=== PATIENT | female | born 1950 | race Caucasian/White ===

== ENCOUNTER 2019-12-02 06:49 | Day surgery (SDC) | payer MEDICARE, BC ==
[~2019-12-02] VITALS: Ht 157.5 cm; Wt 78.0 kg
[~2019-12-02 06:49] MED LIST: ALBU8.5H8 INH; ASPI-515 PO; BUPIVACAINE/PF 0.5% ONE; EPINEPHRINE 1 MG/ML, 1ML ONE; ESTR1GEL TP; LEVO25TA4 PO; PROG100C10 PO; TUMERIC PO; VALA10007 PO; [UNRECOGNIZED DRUG - OTHER] PO; [UNRECOGNIZED DRUG - OTHER] PO
[2019-12-02] MEDS ORDERED: LIDOCAINE 1%, 20ML ONE (07:01)
[2019-12-02 07:02] VITALS: BP 154/80
[2019-12-02] MEDS ORDERED: LACTATED RINGERS 1,000 ML IV SCH (07:10)
[2019-12-02] MEDS ORDERED: CHLORHEXIDINE 15 ML UDC MM STA (07:10)
[2019-12-02] MEDS ORDERED: MIDAZOLAM 1 MG/ML, 2ML ONE (07:20)
[2019-12-02] MEDS ORDERED: FENTANYL PF 250 MCG/5ML ONE (07:20)
[2019-12-02] MEDS ORDERED: SUCCINYLCHOLINE 20 MG/ML, 10ML ONE (07:40)
[2019-12-02] MEDS ORDERED: ROCURONIUM 10MG/ML,5ML ONE (07:40)
[2019-12-02] MEDS ORDERED: DEXAMETHASONE 4 MG/ML, 1ML ONE (07:40)
[2019-12-02] MEDS ORDERED: ONDANSETRON 2MG/ML, 2ML ONE (07:40)
[2019-12-02] MEDS ORDERED: CEFAZOLIN 1,000 MG ONE (07:40)
[2019-12-02] MEDS ORDERED: OXYcodone 5 MG/5 ML ORAL.SOL UDC PO PRN (08:30)
[2019-12-02] MEDS ORDERED: PROMETHAZINE 25 MG/ML, 1ML IV PRN (08:30)
[2019-12-02] MEDS ORDERED: KETOROLAC 30 MG/1 ML IV PRN (08:30)
[2019-12-02] MEDS ORDERED: METOCLOPRAMIDE 5 MG/ML, 2ML IV PRN (08:30)
[2019-12-02] MEDS ORDERED: FENTANYL PF 100 MCG/2ML IV PRN (08:30)
[2019-12-02] MEDS ORDERED: MEPERIDINE/PF 25MG/0.5ML IVPush PRN (08:30)
[2019-12-02] MEDS ORDERED: ONDANSETRON 2MG/ML, 2ML IVPush PRN (08:30)
[2019-12-02] MEDS ORDERED: DIAZEPAM 5 MG/ML, 2ML IV PRN ×2 (08:30)
[2019-12-02] MEDS ORDERED: LABETALOL 5MG/ML, 20ML IV PRN (08:30)
[2019-12-02] MEDS ORDERED: hydrALAzine 20 MG/ML, 1ML IV PRN (08:30)
[2019-12-02] MEDS ORDERED: HYDROmorphone 1 MG/ML, 1ML INJ IV PRN (08:30)
[2019-12-02] MEDS ORDERED: ALBUTEROL SULFATE 2.5 MG/3 ML NPPB PRN (08:30)
== END 2019-12-02 10:35 | disposition home or self-care (01) ==
LOC: OUT 06:49
PROVIDERS: ATTEND Podiatrist Foot & Ankle Surgery
DX: S93.326A Dislocation of tarsometatarsal joint of unspecified foot, initial encounter (principal); M19.071 Primary osteoarthritis, right ankle and foot; Z20.828 Contact with and (suspected) exposure to other viral communicable diseases; G89.18 Other acute postprocedural pain; J44.9 Chronic obstructive pulmonary disease, unspecified; Z79.890 Hormone replacement therapy; Z79.899 Other long term (current) drug therapy; Z88.2 Allergy status to sulfonamides; Z88.5 Allergy status to narcotic agent; Z88.8 Allergy status to other drugs, medicaments and biological substances; Z91.048 Other nonmedicinal substance allergy status; X58.XXXA Exposure to other specified factors, initial encounter; Y93.89 Activity, other specified; Y92.89 Other specified places as the place of occurrence of the external cause; Y99.8 Other external cause status
CPT/HCPCS: 28615; 28740; 36415; 64445; 64447; 71046; 73620; 87635; 93005; C1713; C1762; J0171; J0330; J0690; J1100; J2250; J2405; J3010; 76000